=== PATIENT | male | born 1970 | race Two or more races ===

== ENCOUNTER 2016-10-21 07:00 | Emergency (ER) | payer BC, OTHER ==
[~2016-10-21] VITALS: Ht 167.6 cm; Wt 154.2 kg
[2016-10-21 07:32] VITALS: BP 128/86
[2016-10-21] MEDS ORDERED: SODIUM CHLORIDE 0.9% 1,000 ML IV ONE (08:15)
[2016-10-21] MEDS ORDERED: ONDANSETRON HCL 4 MG/2 ML VIAL IV ONE (08:15)
[2016-10-21] MEDS ORDERED: KETOROLAC TROMETH 30 MG/ML 1ML VIAL IV ONE (08:15)
[2016-10-21 08:32] LABS: Basophils # (auto) 0 uL; Basophils % (auto) 0.7 % (0.0-2.0); CONDITION Y; Eosinophils # (auto) 0.1 uL; Eosinophils % (auto) 1.2 % (0.0-7.0); Hematocrit 43.5 % (41.0-53.0); Hemoglobin 14.7 g/dL (13.5-17.5); Lymphocytes # (auto) 1.6 uL; Mean Corpuscular Hgb Conc. 33.7 g/dL (32.0-36.0); Mean Corpuscular Volume 83.1 fL (80.0-100.0); Mean Platelet Volume 8.2 fL (7.4-10.4); Monocytes # (auto) 0.5 uL; Monocytes % (auto) 7.8 % (0.0-12.0); Neutrophils # (auto) 4.3 uL; Neutrophils % (auto) 66.3 % (37.0-80.0); Platelet Count (auto) 253 10^3/uL (140-450); Red Cell Distribution Width 14.5 % (11.6-16.0); White Blood Cell 6.5 10^3/uL (4.4-10.8)
[2016-10-21 08:59] LABS: Albumin 3.8 g/dL (3.4-5.0); BUN/Creatinine Ratio 12.8; Bilirubin, Total 0.4 mg/dL (0.2-1.0); Calcium 8.7 mg/dL (8.5-10.1); Potassium 3.9 mmol/L (3.5-5.1); Total Protein 6.6 g/dL (6.4-8.2)
== END 2016-10-21 09:36 | disposition home or self-care (01) ==
LOC: ER 07:00
DX: N20.2 Calculus of kidney with calculus of ureter (principal); E78.5 Hyperlipidemia, unspecified; I10 Essential (primary) hypertension; Z87.442 Personal history of urinary calculi
CPT/HCPCS: 36415; 74176; 80053; 85025; 96361; 96374; 96375; 99285; J1885; J2405; J7030

== ENCOUNTER 2016-10-23 22:47 | Emergency (ER) | payer BC ==
[~2016-10-23] VITALS: Ht 167.6 cm; Wt 154.2 kg
[2016-10-23 22:58] VITALS: BP 139/79
[2016-10-23] MEDS: ACETAMINOPHEN 325 MG TAB PO ONE ×2 (23:08→23:09)
[2016-10-23 23:18] LABS: Urine Bilirubin Negative (Negative); Urine Blood Negative /uL (Negative); Urine Color Yellow (Yellow); Urine Glucose Normal (Normal); Urine Ketone Negative (Negative); Urine Mucus FEW (None Seen); Urine Nitrite Negative (Negative); Urine RBC <1 /hpf (0 - 3); Urine Squamous Epithelial Cell FEW /hpf (<5); Urine Urobilinogen Normal (Negative)
[2016-10-23 23:32] LABS: Basophils # (auto) 0.1 uL; Basophils % (auto) 2.5 % (0.0-2.0); Eosinophils # (auto) 0 uL; Eosinophils % (auto) 0.6 % (0.0-7.0); Hematocrit 42.1 % (41.0-53.0); Hemoglobin 14.2 g/dL (13.5-17.5); Lymphocytes # (auto) 0.5 uL; Lymphocytes % (auto) 9.3 % (10.0-50.0); Mean Corpuscular Hgb Conc. 33.6 g/dL (32.0-36.0); Mean Corpuscular Volume 83.2 fL (80.0-100.0); Mean Platelet Volume 7.4 fL (7.4-10.4); Monocytes # (auto) 0.4 uL; Monocytes % (auto) 7.6 % (0.0-12.0); Neutrophils # (auto) 4.9 uL; Platelet Count (auto) 217 10^3/uL (140-450); Red Cell Distribution Width 13.3 % (11.6-16.0); SUSPECT SEE PRINTOUT; White Blood Cell 5.9 10^3/uL (4.4-10.8)
[2016-10-23 23:46] LABS: Albumin 3.7 g/dL (3.4-5.0); BUN/Creatinine Ratio 13.5; Calcium 8.2 mg/dL (8.5-10.1); Potassium 3.9 mmol/L (3.5-5.1)
[2016-10-23 23:48] LABS: Bilirubin, Total 0.5 mg/dL (0.2-1.0); Total Protein 6.9 g/dL (6.4-8.2)
== END 2016-10-24 04:07 | disposition left against medical advice (07) ==
LOC: ER 22:47
DX: R50.9 Fever, unspecified (principal); Z53.21 Procedure and treatment not carried out due to patient leaving prior to being seen by health care provider
CPT/HCPCS: 36415; 80053; 81001; 85025

== ENCOUNTER 2021-02-10 10:52 | Inpatient (IN) | payer BC, OTHER ==
[~2021-02-10] VITALS: Ht 172.7 cm; Wt 138.0 kg
[2021-02-10 11:48] LABS: Basophils # (auto) 0 10 ^3/uL (0-0.2); Basophils % (auto) 0.3 % (0.0-2.0); Eosinophils # (auto) 0 10 ^3/uL (0-0.8); Eosinophils % (auto) 0.1 % (0.0-7.0); Hematocrit 45.8 % (41.0-53.0); Hemoglobin 15.8 g/dL (13.5-17.5); Lymphocytes # (auto) 0.9 10 ^3/uL (0.4-5.4); Lymphocytes % (auto) 18.3 % (10.0-50.0); Mean Corpuscular Hemoglobin 28.4 pg (28.0-32.0); Mean Corpuscular Hgb Conc. 34.6 g/dL (32.0-36.0); Mean Corpuscular Volume 82.2 fL (80.0-100.0); Monocytes # (auto) 0.2 10 ^3/uL (0-1.3); Monocytes % (auto) 4.7 % (0.0-12.0); Neutrophils # (auto) 3.7 10 ^3/uL (1.6-8.6); Neutrophils % (auto) 76.6 % (37.0-80.0); Nucleated Red Blood Cells % 0.3 %; Red Blood Cells 5.57 10^6/uL (4.5-5.90); Red Cell Distribution Width 13.9 % (11.8-14.3); White Blood Cell 4.8 10^3/uL (4.4-10.8)
[2021-02-10 11:56] LABS: Albumin 3.7 g/dL (3.4-5.0); Calcium 8.6 mg/dL (8.5-10.1); Magnesium 2.6 mg/dL (1.6-2.6); Potassium 3.6 mmol/L (3.5-5.1)
[2021-02-10 12:02] LABS: BUN/Creatinine Ratio 12.7; Bilirubin, Total 0.6 mg/dL (0.2-1.0); Total Protein 7.3 g/dL (6.4-8.2)
[2021-02-10] MEDS ORDERED: IOHEXOL 350 MG/ML 100ML IJ ONE (12:23)
[2021-02-10] MEDS ORDERED: AZITHROMYCIN 500MG/ 250ML 250 ML IV ONE (12:30)
[2021-02-10 13:27] LABS: INR 1.02 (0.9-1.15); Partial Thromboplastin Time 29.9 sec (23.6-33.0)
[2021-02-10] MEDS ORDERED: REMDESIVIR PER PHARMACY 0 ML IV SCH (14:00)
[2021-02-10] MEDS ORDERED: NITROGLYCERIN 0.4 MG SL TAB SL PRN (14:00)
[2021-02-10] MEDS ORDERED: MORPHINE SULFATE INJECTION 2 MG/ML SYRG IV PRN (14:00)
[2021-02-10] MEDS ORDERED: diphenhdrAMINE HCL 50 MG/1 ML VL IV PRN (14:00)
[2021-02-10] MEDS ORDERED: DEXTROSE (50%) 50ML SYRG IV PRN (14:30)
[2021-02-10] MEDS ORDERED: TEMAZEPAM 15 MG CAP PO PRN (14:30)
[2021-02-10] MEDS ORDERED: traMADol HCL 50 MG TAB PO PRN (14:30)
[2021-02-10] MEDS ORDERED: ACETAMINOPHEN 500 MG TAB PO PRN (14:30)
[2021-02-10] MEDS ORDERED: PROMETHAZINE HCL 25 MG/ML 1ML IV PRN (14:30)
[2021-02-10] MEDS ORDERED: LACTULOSE 20Gm/30ML SOLN PO PRN (14:30)
[2021-02-10] MEDS: CHOLECALCIFEROL (VITD3) 2,000 UNIT CAP/TAB PO SCH (15:11)
[2021-02-10] MEDS: IVERMECTIN 3 MG TAB PO SCH (15:11)
[2021-02-10] MEDS: ASCORBIC ACID 1,000 MG TAB PO SCH (15:11)
[2021-02-10] MEDS: DexAMETHasone SOD PHOS 10MG/1ML VIAL INJ IV SCH (15:11)
[2021-02-10] MEDS: ZINC SULFATE 220mg CAP or TAB PO SCH (15:11)
[2021-02-10 15:54] VITALS: BP 121/78
[2021-02-10 17:00] VITALS: BP 113/78
[2021-02-10] MEDS: ACCU-CHEK COMFORT CURVE STRIP VI SCH ×2 (17:00→21:17)
[2021-02-10] MEDS ORDERED: REMDESIVIR 200 MG in NS 210ml LOADING DOSE ADULT IV ONE (17:15)
[2021-02-10 17:20] LABS: Urine Bacteria NONE SEEN /hpf (None Seen); Urine Blood Negative /uL (Negative); Urine Mucus FEW (None Seen); Urine WBC <1 /hpf (0 - 3)
[2021-02-10 17:26] LABS: Urine Specific Gravity > 1.050 (1.001-1.035)
[2021-02-10] MEDS: cefTRIAXone 1GM/50ML D5W 50 ML IV SCH (18:18)
[2021-02-10] MEDS: PROMETHAZINE W/CODEINE 5 ML ORAL SYRUP PO PRN (20:53)
[2021-02-10] MEDS: SODIUM CHLOR 0.9% PF (SALINE LOCK) 10ML VIAL/SYR IV SCH (21:16)
[2021-02-10] MEDS: ENOXAPARIN SOD 40 MG/0.4 ML SYRINGE SC SCH (21:17)
[2021-02-10] MEDS: BUDESONIDE (INHALATION) 180 MCG IH IN SCH (21:35)
[2021-02-10] MEDS: ALBUTEROL SULF HFA 90MCG INH 200DOSE IN PRN (21:35)
[2021-02-10 22:00] VITALS: BP 121/82
[2021-02-11 05:00] VITALS: BP 135/75
[2021-02-11] MEDS: SODIUM CHLOR 0.9% PF (SALINE LOCK) 10ML VIAL/SYR IV SCH ×3 (05:31→21:54)
[2021-02-11] MEDS: ACCU-CHEK COMFORT CURVE STRIP VI SCH (06:23)
[2021-02-11] MEDS: PROMETHAZINE W/CODEINE 5 ML ORAL SYRUP PO PRN ×2 (06:25→21:55)
[2021-02-11] MEDS: ALBUTEROL SULF HFA 90MCG INH 200DOSE IN PRN (07:01)
[2021-02-11] MEDS: BUDESONIDE (INHALATION) 180 MCG IH IN SCH ×2 (07:01→21:11)
[2021-02-11 07:05] LABS: Basophils # (auto) 0 10 ^3/uL (0-0.2); Basophils % (auto) 0.2 % (0.0-2.0); Eosinophils # (auto) 0 10 ^3/uL (0-0.8); Eosinophils % (auto) 0.1 % (0.0-7.0); Hematocrit 42.3 % (41.0-53.0); Hemoglobin 14.7 g/dL (13.5-17.5); Lymphocytes # (auto) 0.9 10 ^3/uL (0.4-5.4); Lymphocytes % (auto) 19.8 % (10.0-50.0); Mean Corpuscular Hemoglobin 28.9 pg (28.0-32.0); Mean Corpuscular Hgb Conc. 34.7 g/dL (32.0-36.0); Mean Corpuscular Volume 83.3 fL (80.0-100.0); Monocytes # (auto) 0.4 10 ^3/uL (0-1.3); Monocytes % (auto) 7.9 % (0.0-12.0); Neutrophils # (auto) 3.4 10 ^3/uL (1.6-8.6); Nucleated Red Blood Cells % 0.1 %; Red Blood Cells 5.07 10^6/uL (4.5-5.90); White Blood Cell 4.7 10^3/uL (4.4-10.8)
[2021-02-11 07:32] LABS: Albumin 3.2 g/dL (3.4-5.0); BUN/Creatinine Ratio 19.3; Bilirubin, Total 0.5 mg/dL (0.2-1.0); Calcium 8.1 mg/dL (8.5-10.1); Total Protein 6.6 g/dL (6.4-8.2)
[2021-02-11 09:00] VITALS: BP 129/73
[2021-02-11] MEDS: DexAMETHasone SOD PHOS 10MG/1ML VIAL INJ IV SCH (09:04)
[2021-02-11] MEDS: cefTRIAXone 1GM/50ML D5W 50 ML IV SCH (09:04)
[2021-02-11] MEDS: CHOLECALCIFEROL (VITD3) 2,000 UNIT CAP/TAB PO SCH (09:05)
[2021-02-11] MEDS: AZITHROMYCIN 500MG/ 250ML 250 ML IV SCH (09:05)
[2021-02-11] MEDS: ASCORBIC ACID 1,000 MG TAB PO SCH (09:05)
[2021-02-11] MEDS: ENOXAPARIN SOD 40 MG/0.4 ML SYRINGE SC SCH ×2 (09:05→21:55)
[2021-02-11] MEDS: ZINC SULFATE 220mg CAP or TAB PO SCH (09:05)
[2021-02-11] MEDS: IVERMECTIN 3 MG TAB PO SCH (09:05)
[2021-02-11 13:00] VITALS: BP 121/61
[2021-02-11] MEDS: REMDESIVIR 100mg 100 MG in SODIUM CHL 0.9% 230 ML IV SCH (15:38)
[2021-02-11 16:57] VITALS: BP 122/60
[2021-02-11 21:59] VITALS: BP 122/65
[2021-02-12] MEDS: PROMETHAZINE W/CODEINE 5 ML ORAL SYRUP PO PRN ×2 (04:14→20:06)
[2021-02-12 04:51] VITALS: BP 131/75
[2021-02-12] MEDS: SODIUM CHLOR 0.9% PF (SALINE LOCK) 10ML VIAL/SYR IV SCH ×3 (05:24→21:39)
[2021-02-12] MEDS: ALBUTEROL SULF HFA 90MCG INH 200DOSE IN PRN ×2 (06:02→19:41)
[2021-02-12] MEDS: BUDESONIDE (INHALATION) 180 MCG IH IN SCH ×2 (06:02→19:41)
[2021-02-12 06:21] LABS: Basophils # (auto) 0 10 ^3/uL (0-0.2); Basophils % (auto) 0.1 % (0.0-2.0); Eosinophils # (auto) 0 10 ^3/uL (0-0.8); Eosinophils % (auto) 0.2 % (0.0-7.0); Hematocrit 43.6 % (41.0-53.0); Hemoglobin 15.1 g/dL (13.5-17.5); Lymphocytes % (auto) 29.8 % (10.0-50.0); Mean Corpuscular Hemoglobin 28.8 pg (28.0-32.0); Mean Corpuscular Hgb Conc. 34.6 g/dL (32.0-36.0); Mean Corpuscular Volume 83.4 fL (80.0-100.0); Monocytes # (auto) 0.6 10 ^3/uL (0-1.3); Monocytes % (auto) 8.5 % (0.0-12.0); Neutrophils % (auto) 61.4 % (37.0-80.0); Nucleated Red Blood Cells % 0.3 %; Red Blood Cells 5.22 10^6/uL (4.5-5.90); Red Cell Distribution Width 13.9 % (11.8-14.3); White Blood Cell 6.6 10^3/uL (4.4-10.8)
[2021-02-12 06:26] LABS: INR 1.02 (0.9-1.15); Partial Thromboplastin Time 28.4 sec (23.6-33.0)
[2021-02-12 06:30] LABS: Potassium 3.6 mmol/L (3.5-5.1)
[2021-02-12 06:39] LABS: Albumin 3.3 g/dL (3.4-5.0); BUN/Creatinine Ratio 21.2; Bilirubin, Total 0.5 mg/dL (0.2-1.0); Calcium 8.5 mg/dL (8.5-10.1); Magnesium 2.4 mg/dL (1.6-2.6); Phosphorus 3.8 mg/dL (2.5-4.90); Total Protein 6.7 g/dL (6.4-8.2)
[2021-02-12] MEDS: ENOXAPARIN SOD 40 MG/0.4 ML SYRINGE SC SCH ×2 (10:27→21:38)
[2021-02-12] MEDS: cefTRIAXone 1GM/50ML D5W 50 ML IV SCH (10:28)
[2021-02-12] MEDS: ZINC SULFATE 220mg CAP or TAB PO SCH (10:30)
[2021-02-12] MEDS: ASCORBIC ACID 1,000 MG TAB PO SCH (10:30)
[2021-02-12] MEDS: DexAMETHasone SOD PHOS 10MG/1ML VIAL INJ IV SCH (10:30)
[2021-02-12] MEDS: CHOLECALCIFEROL (VITD3) 2,000 UNIT CAP/TAB PO SCH (10:31)
[2021-02-12] MEDS: AZITHROMYCIN 500MG/ 250ML 250 ML IV SCH (12:48)
[2021-02-12 13:00] VITALS: BP 136/77
[2021-02-12] MEDS: IVERMECTIN 3 MG TAB PO SCH (14:31)
[2021-02-12] MEDS: REMDESIVIR 100mg 100 MG in SODIUM CHL 0.9% 230 ML IV SCH (16:46)
[2021-02-12 22:00] VITALS: BP 146/78
[2021-02-13 05:00] VITALS: BP 139/79
[2021-02-13] MEDS: BUDESONIDE (INHALATION) 180 MCG IH IN SCH ×2 (06:19→21:26)
[2021-02-13] MEDS: ALBUTEROL SULF HFA 90MCG INH 200DOSE IN PRN ×2 (06:20→21:26)
[2021-02-13 06:40] LABS: Cholesterol 178 mg/dL (< 200); HDL Cholesterol 33 mg/dL (40-59); LDL Cholesterol 126 mg/dL (< 100); Triglycerides 141 mg/dL (< 150)
[2021-02-13 09:00] VITALS: BP 147/87
[2021-02-13] MEDS: cefTRIAXone 1GM/50ML D5W 50 ML IV SCH (09:36)
[2021-02-13] MEDS: IVERMECTIN 3 MG TAB PO SCH (10:24)
[2021-02-13] MEDS: ZINC SULFATE 220mg CAP or TAB PO SCH (10:24)
[2021-02-13] MEDS: DexAMETHasone SOD PHOS 10MG/1ML VIAL INJ IV SCH (10:24)
[2021-02-13] MEDS: ASCORBIC ACID 1,000 MG TAB PO SCH (10:24)
[2021-02-13] MEDS: ENOXAPARIN SOD 40 MG/0.4 ML SYRINGE SC SCH ×2 (10:25→21:59)
[2021-02-13] MEDS: CHOLECALCIFEROL (VITD3) 2,000 UNIT CAP/TAB PO SCH (10:25)
[2021-02-13] MEDS: AZITHROMYCIN 500MG/ 250ML 250 ML IV SCH (12:34)
[2021-02-13 13:00] VITALS: BP 137/87
[2021-02-13] MEDS: SODIUM CHLOR 0.9% PF (SALINE LOCK) 10ML VIAL/SYR IV SCH ×3 (14:00→22:00)
[2021-02-13] MEDS: REMDESIVIR 100mg 100 MG in SODIUM CHL 0.9% 230 ML IV SCH (15:00)
[2021-02-13 15:52] VITALS: BP 137/87
[2021-02-13 17:00] VITALS: BP 138/83
[2021-02-13] MEDS: PROMETHAZINE W/CODEINE 5 ML ORAL SYRUP PO PRN (21:59)
[2021-02-13 22:00] VITALS: BP 137/85
[2021-02-14 05:00] VITALS: BP 150/97
[2021-02-14] MEDS: BUDESONIDE (INHALATION) 180 MCG IH IN SCH (06:54)
[2021-02-14] MEDS: ALBUTEROL SULF HFA 90MCG INH 200DOSE IN PRN (06:54)
[2021-02-14] MEDS: SODIUM CHLOR 0.9% PF (SALINE LOCK) 10ML VIAL/SYR IV SCH ×2 (07:11→15:16)
[2021-02-14 07:45] LABS: Albumin 2.7 g/dL (3.4-5.0); Bilirubin, Direct 0.2 mg/dL (0-0.2); Bilirubin, Total 0.4 mg/dL (0.2-1.0); CRP High Sensitivity 0.56 mg/dL (< 0.3); Magnesium 2.3 mg/dL (1.6-2.6); Potassium 3.7 mmol/L (3.5-5.1); Total Protein 5.7 g/dL (6.4-8.2)
[2021-02-14 09:00] VITALS: BP 121/70
[2021-02-14] MEDS: cefTRIAXone 1GM/50ML D5W 50 ML IV SCH (09:33)
[2021-02-14] MEDS: AZITHROMYCIN 500MG/ 250ML 250 ML IV SCH (11:09)
[2021-02-14] MEDS: DexAMETHasone SOD PHOS 10MG/1ML VIAL INJ IV SCH (11:09)
[2021-02-14] MEDS: CHOLECALCIFEROL (VITD3) 2,000 UNIT CAP/TAB PO SCH (11:09)
[2021-02-14] MEDS: ASCORBIC ACID 1,000 MG TAB PO SCH (11:09)
[2021-02-14] MEDS: ZINC SULFATE 220mg CAP or TAB PO SCH (11:09)
[2021-02-14] MEDS: ENOXAPARIN SOD 40 MG/0.4 ML SYRINGE SC SCH (11:10)
[2021-02-14] MEDS: IVERMECTIN 3 MG TAB PO SCH (11:39)
[2021-02-14 13:00] VITALS: BP 131/75
[2021-02-14] MEDS ORDERED: DOXY-286 PO (13:45)
[2021-02-14] MEDS ORDERED: ALBUAER3 IN (13:45)
[2021-02-14] MEDS ORDERED: ASCO10003 PO (13:45)
[2021-02-14] MEDS ORDERED: ZINC220T6 PO (13:45)
[2021-02-14] MEDS ORDERED: BUDE2SUS3 IN (13:45)
[2021-02-14] MEDS ORDERED: DEX4T PO (13:45)
[2021-02-14] MEDS ORDERED: ASPI-378 PO (13:45)
[2021-02-14] MEDS: REMDESIVIR 100mg 100 MG in SODIUM CHL 0.9% 230 ML IV SCH (15:15)
[2021-02-14 15:53] VITALS: BP 131/75
== END 2021-02-14 17:15 | disposition home or self-care (01) | DRG 177 ==
LOC: ER 10:52 → TELE 13:59 → TELE-EAST 16:20
PROVIDERS: ADMIT Internal Medicine; ATTEND Internal Medicine
PROC: XW033E5 Introduction of Remdesivir Anti-infective into Peripheral Vein, Percutaneous Approach, New Technology Group 5 (ICD-10-PCS; principal; 2021-02-10)
DX: U07.1 COVID-19 (principal); J96.01 Acute respiratory failure with hypoxia; J12.82 Pneumonia due to coronavirus disease 2019; Z68.42 Body mass index [BMI] 45.0-49.9, adult; R73.9 Hyperglycemia, unspecified; E66.01 Morbid (severe) obesity due to excess calories; I10 Essential (primary) hypertension; E78.5 Hyperlipidemia, unspecified; Z83.3 Family history of diabetes mellitus; K76.0 Fatty (change of) liver, not elsewhere classified; Z87.442 Personal history of urinary calculi; D89.839 Cytokine release syndrome, grade unspecified
CPT/HCPCS: 36415; 71045; 71275; 80053; 80061; 80076; 81001; 82306; 82728; 82962; 83036; 83605; 83615; 83735; 83880; 84100; 84132; 84484; 85025; 85379; 85610; 85730; 86141; 86850; 86900; 86901; 87040; 87426; 93005; 94640; 96365; 96367; G0378; J0696; J1100

== ENCOUNTER 2023-10-18 00:41 | Emergency (ER) | payer BC, OTHER ==
[~2023-10-18] VITALS: Ht 167.6 cm; Wt 145.8 kg
[~2023-10-18 00:41] MED LIST: ALBUAER3 IN; ASCO10003 PO; BUDE2SUS3 IN; DEX4T PO; DOXY-286 PO; ZINC220T6 PO
[2023-10-18 00:46] VITALS: BP 148/82; PULSE 81; RESP 19; O2SAT 96
[2023-10-18 01:48] LABS: Urine Bacteria None Seen /hpf (None Seen)
[2023-10-18 01:55] LABS: Basophils # (auto) 0 10 ^3/uL (0-0.2); Basophils % (auto) 0.6 % (0.0-2.0); Eosinophils # (auto) 0.1 10 ^3/uL (0-0.8); Eosinophils % (auto) 1.2 % (0.0-7.0); Hematocrit 42.7 % (41.0-53.0); Hemoglobin 14.6 g/dL (13.5-17.5); Lymphocytes # (auto) 2.2 10 ^3/uL (0.4-5.4); Lymphocytes % (auto) 27.5 % (10.0-50.0); Mean Corpuscular Hemoglobin 29.2 pg (28.0-32.0); Mean Corpuscular Hgb Conc. 34.3 g/dL (32.0-36.0); Mean Corpuscular Volume 85.1 fL (80.0-100.0); Monocytes # (auto) 0.6 10 ^3/uL (0-1.3); Neutrophils % (auto) 62.7 % (37.0-80.0); Nucleated Red Blood Cells % 0.1 %; Red Blood Cells 5.02 10^6/uL (4.5-5.90); Red Cell Distribution Width 14.5 % (11.8-14.3); White Blood Cell 7.9 10^3/uL (4.4-10.8)
[2023-10-18 01:58] LABS: Urine Blood Negative /uL (Negative); Urine Clarity Clear (Clear); Urine Color Yellow (Yellow); Urine Mucus FEW (None Seen); Urine Protein, UAD TRACE (Negative); Urine Specific Gravity 1.034 (1.001-1.035); Urine Urobilinogen Normal (Negative); Urine WBC 2 /hpf (0 - 3); Urine pH 5.5 (5.0-9.0)
[2023-10-18 02:11] LABS: Alanine Aminotransferase 116 U/L (7-40); Albumin 4.2 g/dL (3.2-4.8); Alkaline Phosphatase 70 U/L (46-116); Anion Gap 7 (5-15); Aspartate Aminotransferase 36 U/L (13-40); BUN/Creatinine Ratio 10.1 (10.0-20.0); Blood Urea Nitrogen 13 mg/dL (9-23); Carbon Dioxide 23 mmol/L (20-30); Chloride 112 mmol/L (98-107); Glucose 137 mg/dL (74-106); Lipase 39 U/L (12-53); Potassium 3.8 mmol/L (3.5-5.1); Sodium 142 mmol/L (136-145)
[2023-10-18 02:12] LABS: Bilirubin, Total 0.3 mg/dL (0.2-1.0); Total Protein 6.5 g/dL (5.7-8.2)
[2023-10-18] MEDS ORDERED: TAMS0.4C36 PO (03:37)
== END 2023-10-18 03:51 | disposition home or self-care (01) ==
LOC: ER 00:41
DX: N20.0 Calculus of kidney (principal); E78.5 Hyperlipidemia, unspecified; I10 Essential (primary) hypertension; Z79.899 Other long term (current) drug therapy; Z87.442 Personal history of urinary calculi
CPT/HCPCS: 36415; 74176; 80053; 81001; 83690; 85025